=== PATIENT | female | born 1995 | race Caucasian/White ===

== ENCOUNTER 2018-05-22 19:36 | Emergency (ER) | payer BC ==
[~2018-05-22] VITALS: Ht 167.6 cm; Wt 95.5 kg
[~2018-05-22 19:36] MED LIST: BACTRIM DS 8001 TAB PO; NO HOME MEDICATIONS
[2018-05-22] MEDS ORDERED: HUMIRA40 MG/0.1 SQ (19:46)
[2018-05-22] MEDS ORDERED: ZITHROMAX Z PA250 MG PO (22:06)
[2018-05-22 22:53] VITALS: BP 131/81; PULSE 89; TEMP 99
== END 2018-05-22 22:55 | disposition home or self-care (01) ==
LOC: COL.ER 19:36
DX: J40 Bronchitis, not specified as acute or chronic (principal); Z98.890 Other specified postprocedural states
CPT/HCPCS: J1885; J2405; J7030

== ENCOUNTER 2019-02-04 19:33 | Emergency (ER) | payer BC ==
[~2019-02-04] VITALS: Ht 165.1 cm; Wt 81.8 kg
[~2019-02-04 19:33] MED LIST changes: +HUMIRA40 MG/0.1 SQ; +ZITHROMAX Z PA250 MG PO
[2019-02-04 19:41] VITALS: BP 142/91; PULSE 84; TEMP 98.1
== END 2019-02-04 20:15 | disposition left against medical advice (07) ==
LOC: COL.ER 19:33
DX: S40.861A Insect bite (nonvenomous) of right upper arm, initial encounter (principal); W57.XXXA Bitten or stung by nonvenomous insect and other nonvenomous arthropods, initial encounter

== ENCOUNTER 2021-05-18 17:40 | Emergency (ER) | payer BC ==
[~2021-05-18] VITALS: Ht 165.1 cm; Wt 100.0 kg
[2021-05-18 18:20] VITALS: TEMP 100
[2021-05-18 18:22] LABS: COLLECTION METHOD CLEAN CATCH
[2021-05-18 18:37] LABS: BASO % 0.1 % (0.0-2.0); EOS # 0.1 K/mm3 (0.0-0.7); EOS % 1.6 % (0.0-4.0); GRAN # 5.2 K/mm3 (1.4-6.5); GRAN % 76.1 % (42.2-75.2); HEMATOCRIT 36.9 % (37.0-47.0); HEMOGLOBIN 12.7 g/dl (12.5-16.0); LYMPH # 0.7 K/mm3 (1.2-3.4); LYMPH % 10.3 % (20.0-51.0); MEAN CELL VOLUME 86 fl (80.0-100.0); MEAN CORPUSCULAR HEMOGLOBIN 30 pg (27-31); MEAN CORPUSCULAR HGB CONC 34 g/dl (33.0-37.0); MONO # 0.8 K/mm3 (0.1-0.6); MONO % 11.5 % (1.7-9.3); PLATELET COUNT 224 K/mm3 (130-400); RED BLOOD COUNT 4.29 M/mm3 (4.10-5.30); REDCELL DISTRIBUTION WIDTH-CV 12.7 % (11.5-14.5)
[2021-05-18 18:38] LABS: MUCOUS Present (NOT PRESENT); PH 6 (5-8); URINE APPEARANCE Hazy (CLEAR/HAZY); URINE BACTERIA Moderate /hpf (NONE SEEN); URINE BILIRUBIN Negative (NEGATIVE); URINE BLOOD Negative (NEGATIVE); URINE COLOR Straw (YELLOW); URINE GLUCOSE Negative (NEGATIVE); URINE KETONE Negative (NEGATIVE); URINE LEUKOCYTE ESTERASE Negative (NEGATIVE); URINE NITRATE Negative (NEGATIVE); URINE PROTEIN(semi-quant) Negative (NEGATIVE); URINE RBC 0-2 /hpf (0-2); URINE UROBILINOGEN Negative (NEGATIVE)
[2021-05-18 18:56] LABS: ALBUMIN 4.2 gm/dL (3.5-5.0); BILIRUBIN,TOTAL 0.3 mg/dL (0.2-1.2); C-REACTIVE PROTEIN 0.92 mg/dL (0.00-0.50); CALCIUM 9.2 mg/dL (8.4-10.2); CREATININE, serum 0.81 mg/dL (0.57-1.11); POTASSIUM 4.2 mmol/L (3.5-4.5); TOTAL PROTEIN 7.7 gm/dL (6.2-8.1)
[2021-05-18 19:25] VITALS: BP 131/71; PULSE 80
== END 2021-05-18 19:30 | disposition home or self-care (01) ==
LOC: COL.ER 17:40
PROVIDERS: Nurse Practitioner
DX: U07.1 COVID-19 (principal)